=== PATIENT | female | born 1990 | race Caucasian/White ===

== ENCOUNTER → 2022-08-29 11:46 | Outpatient (CLI) | payer SELFPAY ==
--- NOTE | ~2022-08-29 | US_ITS ---
EXAMINATION: US OB transvaginal DATE: 08/29/2022 12:13 INDICATION: Gestational dating. TECHNIQUE: Real-time transvaginal obstetric ultrasound. FINDINGS: No prior studies for comparison. The uterus measures 7.8 x 5.3 x 6.6 cm. There is an intrauterine gestational sac, with pole juan luis ntified. The crown rump length measures 0.42 cm, which correlates with a estimated gestational age o f 6 weeks 1 day. heart tones are identified measuring 121 bpm. There is a small subchorionic hemorrhage measuring 12 x 6 x 8 mm. There is a corpus luteal cyst of the right ovary measuring 3.7 cm . The left ovary is unremarkable. IMPRESSION: 1. SL IUP with an EGA of 6 weeks, 1 days (EDC by current ultrasound of 04/23/2023). 2: Small subchorionic hemorrhage. 3: Corpus luteal cyst of the right ovary measuring 3.7 cm. Reviewed, dictated and finalized at location A. 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 SL IUP with an EGA of 6 weeks, 1 days (EDC by current ultrasound of ). 2: Small subchorionic hemorrhage. 3: Corpus luteal cyst of the right ovary measuring 3.7 cm.
== END ==
PROVIDERS: PCP Family Medicine; Visit Provider Nurse Practitioner Family
DX: O36.8911 Maternal care for other specified fetal problems, first trimester, fetus 1 (principal); Z3A.01 Less than 8 weeks gestation of pregnancy; N83.11 Corpus luteum cyst of right ovary
CPT/HCPCS: 76817

== ENCOUNTER → 2022-10-13 10:51 | Outpatient (CLI) | payer SELFPAY ==
--- NOTE | ~2022-10-13 | US_ITS ---
EXAMINATION: US OB <= 14 weeks fetus DATE: 10/13/2022 11:21 INDICATION: Encounter for supervision of other normal second trimester TECHNIQUE: Real-time pelvic transabdominal and transvaginal ultrasound was performed. COMPARISON: 08/29/2022 FINDINGS: The uterus measures 16.9 x 6.6 x 11.8 cm. There is an intrauterine gestational sac. There is a 3.3 x 1.2 x 1.4 cm hypoechoic area adjacent to the cranial aspect of the gestational sac. A yolk sac is identified. heart motion is identified measuring 153 beats per minute (bpm) by M-mode D oppler. The crown rump length measures 7.3 cm, which correlates with an estimated gestational a ge of 13 weeks and 3 day(s) (+/-) 8 day(s). The right ovary measures 5.9 x 4.5 x 7.0 cm and contains a 4.6 cm cyst. The left ovary measures 3.3 x 2.0 x 3.3 cm. There is normal vascular flow in the ovaries. There is no free fluid in the pelvis. IMPRESSION: 1. Live intrauterine with an estimated gestational age of 13 weeks and 3 day(s) (+/-) 8 day (s) and an estimated delivery date of 04/17/2023. 2. Moderate-sized subchorionic hematoma. Reviewed, dictated and finalized at location B. [employer] ASSISTANTS TEACHER IMPRESSION: 1. Live intrauterine with an estimated gestational age of 13 weeks an d 3 day(s) (+/-) 8 day(s) and an estimated delivery date of 04/17/2023. 2. Moderate-sized subchorionic hematoma.
== END ==
PROVIDERS: PCP Family Medicine; Visit Provider Nurse Practitioner Family
DX: Z34.81 Encounter for supervision of other normal pregnancy, first trimester (principal); Z3A.13 13 weeks gestation of pregnancy
CPT/HCPCS: 76801

== ENCOUNTER → 2022-12-01 13:48 | Outpatient (CLI) | payer SELFPAY ==
--- NOTE | ~2022-12-01 | US_ITS ---
EXAMINATION: US OB /maternal detail DATE: 12/01/2022 14:34 INDICATION: Second trimester anatomic survey TECHNIQUE: Real-time ultrasound of the pelvis was performed. COMPARISON: None. FINDINGS: There is a single living fetus in vertex presentation. The placenta is anterior and 4.3 cm from the i nternal cervical os. The cervical length is 3.9 cm. heart rate is 138 beats per minute (bpm). cardiac activity and movement are noted. The amniotic fluid index is subjectively normal. The following anatomy was identified as normal: 4 chamber heart 3 vessel cord cord insertion kidneys urinary bladder stomach spine diaphragm ventricles cisterna magna cerebellum The following biometric data were obtained: Biparietal diameter (BPD): 4.7 cm; head circumference (HC): 17.3 cm; abdominal circumference (AC): 14 .3 cm; femur length (FL): 2.9 cm. These measurements are concordant. Estimated weight is 293 g +/- 44 g, which correlates with the 39th percentile when 04/23/2023 is used as estimated date of delivery. As single measurements, these parameters are each equal to the following estimated gestational ages w ith ranges of +/- 2 standard deviations: BPD: 20 weeks 1 days ( 18 weeks 3 days - 22 weeks 0 days). HC: 19 weeks 6 days ( 18 weeks 3 days - 21 weeks 2 days). AC: 19 weeks 5 days ( 17 weeks 4 days - 21 weeks 5 days). FL: 19 weeks 1 days ( 17 weeks 2 days - 20 weeks 6 days). estimated gestational age based solely on measurements from this exam is 19 weeks 5 days +/- 1 weeks 3 days. IMPRESSION: 1. Single living fetus in vertex presentation. 2. Estimated weight is 293 g +/- 44 g, which correlates with the 39th percentile when 04/23/2023 is used as estimated date of delivery. Reviewed, dictated and finalized at location [facility] IMPRESSION: 1. Single living fetus in vertex presentation. 2. Estimated weight is 293 g +/- 44 g, which correlates with the 39th per centile when 04/23/2023 is used as estimated date of delivery.
== END ==
PROVIDERS: PCP Nurse Practitioner Family; Visit Provider Nurse Practitioner Family
DX: Z34.82 Encounter for supervision of other normal pregnancy, second trimester (principal)
CPT/HCPCS: 76805

== ENCOUNTER 2023-01-10 13:57 | Observation (INO) | payer OTHER, SELFPAY ==
--- NOTE | ~2023-01-10 | US_ITS ---
EXAMINATION: US OB limited w BPP DATE: 01/10/2023 15:40 CDT INDICATION: Status post fall. Biophysical profile. TECHNIQUE: Real-time transabdominal obstetric ultrasound. FINDINGS: Comparison to 12/01/2022 There is a single living fetus in vertex presentation. The placenta is anterior without placenta pre via. cardiac activity and movement is noted with a heart rate of 153 beats per minute. Biophysical profile: breathin of 2 movement: 2 of 2 tone: 2 of 2 Amniotic flud pocket: 2 of 2 Total score: 8 of 8 IMPRESSION: 1. Single living intrauterine in vertex presentation. 2: Total biophysical profile score of 8/8. Reviewed, dictated and finalized at location B.
--- NOTE | 2023-01-10 14:21 | LDADM ---
This patient, Tomasa Estrada, was admitted to OB Post 115 on 01/10/23 at 13:57. Plans for labor, pain management and were discussed with patient. Patient/family oriented to hospital policies and general routines including ID bracelet, bed and alarms, visiting hours, pain management, procedures, bathroom and other care routines, personal items, smoking policy, room service/diet and guest tray routines, infant security routines, and visiting hours. Patient/Family are encouraged to report perceived risks to care and to ask questions if they do not understand what they are told or what they should do. See OBIX for further documentation.
[2023-01-10 14:22] VITALS: BP 140/72; PULSE 93
[2023-01-10 14:31] VITALS: BP 120/90; PULSE 94
[2023-01-10 14:36] VITALS: BMI 42.5
[2023-01-10 14:46] VITALS: BP 124/62; PULSE 90
[2023-01-10 15:01] VITALS: BP 119/72; PULSE 86
--- NOTE | 2023-01-10 15:49 | PC.NURSE ---
Patient presented to OB unit post fall on stomach. Patient was then placed on monitor and tracing determined to be category I. Abdomen is soft to palpation and has no complaints of bleeding but rates intermittent cramps of 3/10. MD paged at [phone] and received call back at [phone]. Reviewed maternal status as well as FHR category I tracing. Orders received for BPP, Ultrasound with placenta check. Per MD, If within normal limits then patient is to be discharged
--- NOTE | 2023-01-10 15:59 | PC.NURSE ---
BPP was 8/8, placenta check unremarkable. Discharge instructions reviewed with patient. Patient to return to unit if leaking of any fluid or cramping increases. Patient verbalizes understanding and has no questions at this time.
--- NOTE | 2023-01-12 09:18 | PM.OBTRLD ---
OB - Triage/Final Diagnosis Visit Information Reason for evaluation: other (trauma) Comments/Additional reasons for admission: I have assessed the risk for this patient, Tomasa Bennett CedilloEstrada, and determined that she would benefit from observation care.
== END 2023-01-10 16:15 | disposition home or self-care (01) ==
PROVIDERS: Admitting Provider Obstetrics & Gynecology; PCP Family Medicine; Visit Provider Obstetrics & Gynecology
DX: Z04.3 Encounter for examination and observation following other accident (principal); Z3A.00 Weeks of gestation of pregnancy not specified
CPT/HCPCS: 76815; 76819; G0378; G0379

== ENCOUNTER 2023-04-07 11:19 | Outpatient (CLI) | payer OTHER, SELFPAY ==
[2023-04-07 11:37] LABS: Hematocrit 34.8 % (37.0-47.0); Mean Corpuscular HGB Conc 31.6 g/dl (32-36); Mean Corpuscular Hemoglobin 27.3 pg (26-34); Mean Corpuscular Volume 86.4 fl (80-100); Mean Platelet Volume 11.5 fl (7.4-10.4); Platelet Count Result 236 k/mm3 (150-375); Red Blood Count 4.03 M/mm3 (4.2-5.4); Red Cell Distribution Width 14.5 % (11.5-14.5); White Blood Count 11.9 K/mm3 (4.5-10.0)
[2023-04-09 05:38] LABS: Rapid Plasma Reagin Non-Reactive (NonReactive)
== END 2023-04-07 11:20 | disposition home or self-care (01) ==
LOC: ANHLAB 11:22
PROVIDERS: PCP Family Medicine; Visit Provider Obstetrics & Gynecology
DX: Z01.812 Encounter for preprocedural laboratory examination (principal)
CPT/HCPCS: 36415; 85027; 86592; 86850; 86900; 86901

== ENCOUNTER 2023-04-09 04:36 | Inpatient (IN) | payer OTHER, SELFPAY ==
--- NOTE | 2023-04-06 10:56 | PM.IMHP ---
H&P: HPI History of Present Illness Date/Time: 04/06/23 10:56 Chief Complaint: Oligohydramnios at term Narrative: this is a 32-year-old 2 para 1 with previous section at 38 weeks gestation with decreased amniotic fluid mildly elevated blood pressure. She does not opt for attempted vaginal after . Risks and benefits of repeat reviewed in full [facility] Family History Family History Other Unknown family medical history Social History Social History Substance use: never Spiritual care concerns: No Meds Home Medications and Allergies Home Medications Medication Instructions Recorded Confirmed Type vit#24-iron amino acid 1 tablet PO DAILY 03/26/23 03/26/23 History chelat-folic acid 30 mg-975 mcg tablet Allergies Allergy/AdvReac Type Severity Reaction Status Date / Time No Known Allergies Allergy Verified 03/26/23 12:44 Exam Const: General: cooperative, healthy appearing and comfortable Nutritional Appearance: average body habitus Orientation/consciousness: oriented to person, oriented to place and oriented to time HENMT: Head: normal to inspection Resp: Effort & Inspection: normal respiratory effort Cardio: Rate: regular rate Rhythm: regular rhythm Heart sounds: S1 normal heart sound present and S2 normal heart sound present GI: Inspection: normal to inspection ( gravid soft uterus) Assessment and Plan Assessment and plan (1) Term : Code(s): Z34.90 - Encounter for supervision of normal , unspecified, unspecified trimester Status: Acute (2) Oligohydramnios: Code(s): O41.00X0 - Oligohydramnios, unspecified trimester, not applicable or unspecified Status: Acute (3) Previous section: Code(s): Z98.891 - History of uterine scar from previous surgery Status: Acute Plan repeat low-transverse section
[2023-04-09] VITALS (51 sets, daily range): BP systolic 86–154; BP diastolic 24–105; PULSE 65–125; RESP 11–20; TEMP 36.3–37.4; O2SAT 84–100; BMI 46.8
--- NOTE | 2023-04-09 05:22 | LDADM ---
This patient, Tomasa Estrada, was admitted to Labor/Delivery/Recovery 120 on 04/09/23 at 04:36. Plans for labor, pain management and were discussed with patient. Patient/family oriented to hospital policies and general routines including ID bracelet, bed and alarms, visiting hours, pain management, procedures, bathroom and other care routines, personal items, smoking policy, room service/diet and guest tray routines, infant security routines, and visiting hours. Patient/Family are encouraged to report perceived risks to care and to ask questions if they do not understand what they are told or what they should do. See OBIX for further documentation.
[2023-04-09] MEDS: LACTATED RINGERS 1,000 ML 125 ML IV CONT (05:47)
--- NOTE | 2023-04-09 06:02 | WPDHPUPDATE1 ---
History and Physical Update Update Date/Time: 04/09/23 06:02 History and Physical has been reviewed, including an updated exam of the patient. There are NO changes in the patient's condition. Risks, benefits, and alternatives have been discussed and questions answered. Patient agrees to proceed with procedure.
--- NOTE | 2023-04-09 06:10 | WPDANESEPP ---
Anes - Eval Pre Procedure Procedure: Operation Date: 04/09/23 07:30 Proposed Procedures p Repeat Section - Geovani Bo MD Date/Time: 04/09/23 06:10 Surgeon: Elizabeth Preop Diagnosis: Abdominal pain with contractions Pre Op Diagnosis: C/S Patient Data Age: 32 Gender: F Height: 1.6 m Weight: 120 kg Last Vital Signs Pulse 100 04/09/23 06:01 BP 97/46 L 04/09/23 06:01 O2 Del Method Room Air 04/09/23 05:19 Allergies Allergy/AdvReac Type Severity Reaction Status Date / Time No Known Allergies Allergy Verified 03/26/23 12:44 Home Medications Medication Instructions Recorded Confirmed Type vit#24-iron amino acid 1 tablet PO DAILY 03/26/23 03/26/23 History chelat-folic acid 30 mg-975 mcg tablet hydrocodone 5 mg-acetaminophen 325 1 tablet PO Q4H PRN pain #30 tabs 04/08/23 Rx mg tablet Laboratory Tests 04/09/23 05:29 HIV 1&2 Ab/P24 Ag 4thGn Pending : gestational age HCG: positive Patient hx anesthesia problems: none Family hx anesthesia problems: none Results Review: All pre-operative results and documents have been reviewed as part of the pre-operative evaluation. [facility] Past Medical History Medical History Morbid obesity and not yet delivered Surgical History Surgical History Previous section Family History Family History Other Unknown family medical history Social History Social History Smoking status: Never smoker Substance use: never Lack of Transportation: No Lack of Food: Never True Current Housing: I Have Housing Concerned About Future Housing: No Difficulty Paying Gas/Electric Bills: No Difficulty Paying for Meds: No Currently Unemployed: No Education: Bachelor's Degree Difficulty w/ Childcare or Family Care: No Spiritual care concerns: No Exam Day of Procedure 04/09/23 06:10 Patient weight: morbidly obese Airway: Mallampati scale class II
[2023-04-09] MEDS: ceFAZolin 2 GM/D5W 50 ML 2 GM/50 ML BAG IVPB (06:25)
--- NOTE | 2023-04-09 06:25 | P.PNAN_ITS ---
Anes - Eval Final PreProcedure Day of Procedure 04/09/23 06:25 Patient weight: morbidly obese Heart: regular rate and rhythm Lungs: clear to auscultation Airway: Mallampati scale class II Neurological: alert and oriented Last oral intake: >/= 8 hours ASA classification: III Emergent: no Anesthetic plan: proceed Anesthesia type and monitoring: regional spinal and standard monitoring Results Review: All pre-operative results and documents have been reviewed as part of the pre- operative evaluation. Informed Consent: The patient's anesthetic plan and its attendant risks and benefits were discusse d with the patient/family/POA. Questions were solicited and answers provided to the satisfaction of the patient/family/POA.
[2023-04-09 06:48] LABS: HIV 1/2 Ab P24 Ag Result Negative (Negative)
[2023-04-09] MEDS: KETOROLAC 30 MG/ML VIAL (*BKC) 15 MG IV PUSH (07:10)
--- NOTE | 2023-04-09 07:14 | P.OP_ITS ---
Procedure Note - Detailed Date of Procedure 04/09/23 Pre-op Diagnosis C/S/: : oligohydramnios Post-op Diagnosis Same Procedure Performed repeat low-transverse section Surgeon Geovani Bo MD Anesthesia Spinal Indications see is a 32-year-old multiparous with a little hydramnios at 38 weeks ge station Findings female infant 7lb 15oz Apgars 8 in 9 Description of Procedure patient was prepped draped sterile fashion placed in supine position. Under excellent spinal anesthetic the abdomen was in Pfannenstiel fashion progressive layers to fascia. Fascia incised midline. A freshman underlying muscles sharply dissected. Parietal perineum a by cut clamps and by sharp dissection carried superiorly and inferiorly dome of the bladder. Bladder blade placed in bladder flap formed. Bladder blade returned and a low-transverse incision made. The head delivered in the JAYDEN position. Anterior posterior shoulder delivered spontaneously. Cord clamped x2 and cut passed of the table adnexal cry. Placenta delivered intact manually after drying cord blood. After assuring no membranes remained in the uterus, the uterus was closed with continuous running locking 0 Vicryl from lateral edge to lateral edge. This was followed by 2nd imbricating running locking 0 Vicryl from lateral edge to lateral edge. Hemostasis was assured. Ovaries and tubes appeared within normal limits. Uteru s returned to the abdomen and the uterine incision inspected 1 last time noted be hemostatic. The pelvic gutters were cleaned and the uterine incision inspected 1 last time. Laps removed and accounted for. The fascia closed with continuous running 0 Vicryl from lateral edge to midline. Irrigation subcutaneous layer the skin glue. Blood loss for procedure estimated at 6 and 15cc. All sponge, needle, instrument counts were correct. No immediate complications Estimated Blood Loss 615 Drains No Packing No Pathology None sent Complications No immediate complications Condition Stable Disposition PACU
--- NOTE | 2023-04-09 07:18 | P.DS_ITS ---
DS: Admitting Diagnosis Discharge Date 04/12/2023 Admitting Diagnosis term /oligohydramnios DS: Discharge Diagnosis Discharge Diagnosis (1) Previous section: Code(s): Z98.891 - History of uterine scar from previous surgery Status: Acute (2) Oligohydramnios: Code(s): O41.00X0 - Oligohydramnios, unspecified trimester, not applicable or unspecified Status: Acute (3) Term : Code(s): Z34.90 - Encounter for supervision of normal , unspecified, unspecified trimester Status: Acute DS: Summary Hospital Course Reason for hospitalization: patient was admitted for repeat section at term secondary to oligohydramnios Hospital Course: this is 32-year-old multiparous patient admitted for repeat section on 04/09/2023. She underwent an unremarkable procedure. Hospital course unrem arkable. She remained afebrile. She was up, voiding without difficulty, ambulated, eating regular diet, general Without complaints. Time Spent with Patient Time attestation: Total time spent providing and/or coordinating discharge services: DS: Data Data Completed and Pending Labs on day of discharge: Labs from last 24 hours 04/09/23 05:29 HIV 1&2 Ab/P24 Ag 4thGn Negative Discharge Plan Discharge Attending physician on discharge: Geovani Lyn Discharging Clinician: Geovani Lyn Patient Disposition: Home, Self-Care Activity: may shower, no straining and pelvic rest Diet: heart healthy Wound Care Instructions: follow printed instructions Patient Instructions: Antibiotic Form Stand Alone Forms: General Discharge Information Follow-up/Referrals: Geovani Lyn MD [Physician] - Discharge Medications: New hydrocodone-acetaminophen 5-325 mg tablet 1 tablet PO Q4H PRN (Reason: pain) Qty: 30 0RF No Action Complete 30-975 mg-mcg Tablet 1 tablet PO DAILY Date of admission: 04/09/23 04:36 Primary Care Provider: Catarina,Rojelio Jones Admitting Provider: Geovani Lyn Attending physician on admission: Geovani Lyn Condition: Stable
[2023-04-09] MEDS: OXYTOCIN 30 UNITS/NS 500 ML 30 UNITS/500 ML BAG 125 UNITS IV CONT (08:49)
--- NOTE | 2023-04-09 09:55 | PC.NURSE ---
Patient transferred to post room #285 via stretcher. Support person present. Oriented to unit, room, information board, rooming in, admission packet and security measures. Patient verbalizes understanding.
--- NOTE | 2023-04-09 11:39 | PC.NURSE ---
[id number] Introductions were made, then consulted with patient to assess needs related to . Mother states she just finished pumping both breast for 15 minutes each with one drop of colostrum. Mother states her nipples are flat and she has brought in her own nipple shield. Resources provided for inpatient and outpatient services with the mom/baby guide and name written on the white board. Mother voiced understanding of information and will call if there is a request for education as right now there's company visiting and infant is level 2. Reported to the primary RN.
[2023-04-09] MEDS: KETOROLAC 30 MG/ML VIAL (*BKC) IV PUSH (13:35)
[2023-04-09] MEDS: DEXTROSE 5%/0.45% SOD CHL 1,000 ML 125 ML IV CONT (14:42)
[2023-04-09] MEDS: IBUPROFEN 600 MG TABLET PO (19:57)
[2023-04-09] MEDS: HYDROcodone/acetaminophen (*CRX) 5-325 MG TABLET 1 TAB PO (19:57)
[2023-04-10] MEDS: HYDROcodone/acetaminophen (*CRX) 5-325 MG TABLET 1 TAB PO ×6 (01:48→23:57)
[2023-04-10] MEDS: IBUPROFEN 600 MG TABLET PO ×3 (01:50→16:31)
[2023-04-10 04:40] VITALS: BP 146/92; PULSE 98; RESP 20; TEMP 37.2
[2023-04-10 05:31] LABS: Basophils Absolute Auto 0.1 K/mm3 (0.0-0.1); Basophils Percent Auto 0.5 % (0.2-1.2); Eosinophils Absolute Auto 0.2 K/mm3 (0-0.3); Eosinophils Percent Auto 1.2 % (0-4.4); Hemoglobin 10.4 g/dL (12.0-15.0); Immature Granulocyte Absolute 0.12 K/mm3 (0.00-0.031); Immature Granulocyte Percent A 0.9 % (0-0.5); Lymphocytes Absolute Auto 2.12 K/mm3 (0.9-3.2); Lymphocytes Percent Auto 15.6 % (18.3-44.2); Mean Corpuscular HGB Conc 30.6 g/dl (32-36); Mean Corpuscular Hemoglobin 27.4 pg (26-34); Mean Corpuscular Volume 89.5 fl (80-100); Monocytes Percent Auto 7.4 % (2.6-8.5); Neutrophils Absolute Auto 10.1 K/mm3 (1.3-6.7); Neutrophils Percent Auto 74.4 % (45.5-73.1); Platelet Count Result 225 k/mm3 (150-375); Red Cell Distribution Width 14.7 % (11.5-14.5); White Blood Count 13.6 K/mm3 (4.5-10.0)
--- NOTE | 2023-04-10 05:54 | P.PNOB_ITS ---
OB - PN: Subj Subjective Date/time seen: 04/10/23 05:54 Patient comments: no complaints and pain well controlled baby status: doing well OB - PN: Obj Data Labs 04/10/23 04:42 Labs: Laboratory Results - last 24 hr 04/09/23 04/10/23 05:29 04:42 WBC 13.6 H RBC 3.80 L Hgb 10.4 L Hct 34.0 L MCV 89.5 MCH 27.4 MCHC 30.6 L RDW 14.7 H Plt Count 225 MPV 12.0 H Immature Gran % (Auto) 0.9 H Neut % (Auto) 74.4 H Lymph % (Auto) 15.6 L Calhoun % (Auto) 7.4 Eos % (Auto) 1.2 Baso % (Auto) 0.5 Lymph # (Auto) 2.12 Calhoun # (Auto) 1.0 H Eos # (Auto) 0.2 Baso # (Auto) 0.1 Abs Immat Gran (auto) 0.12 H Absolute Neuts (auto) 10.1 H Absolute Nucleated RBC 0.0 Nucleated RBC % 0.0 HIV 1&2 Ab/P24 Ag 4thGn Negative OB - PN A/P Plan day: 1 Plan: routine care Time Spent With Patient Time: Total time spent is greater than 50% in coordination of care (as documented) at patient's floor/unit and/or counseling patient: Time with patient: less than 15 minutes Exam Const: General: cooperative, healthy appearing and comfortable Nutritional Appearance: average body habitus Orientation/consciousness: oriented to person, oriented to place and oriented to time Resp: Effort & Inspection: normal respiratory effort Cardio: Rate: regular rate Rhythm: regular rhythm Heart sounds: S1 norm al heart sound present and S2 normal heart sound present GI: Inspection: normal to inspection and incision ( wound clean dry and intact)
--- NOTE | 2023-04-10 07:44 | WPDANLDPN2 ---
Anes-Prog Note L&D Date/Time: 04/10/23 07:44 Comfortable throughout: section Neuraxial method: spinal Epidural/Spinal procedure site: clean & non-tender Neuro status: Neuro function grossly intact. Cardiovascular status: normal Respiratory status: normal Airway patency: baseline Mental status: baseline Post-Op hydration status: normal Vital Signs: Last Vital Signs Temp 37.2 C 04/10/23 04:40 Pulse 98 04/10/23 04:40 Resp 20 04/10/23 04:40 BP 146/92 H 04/10/23 04:40 Pulse Ox 97 04/09/23 14:43 O2 Del Method Room Air 04/09/23 09:23 Pain score (VAS): 2/10 I/O: Intake & Output 04/09/23 04/09/23 04/10/23 15:59 23:59 07:59 Intake Total 1000 2150 Output Total 685 1600 300 Balance 315 550 -300 Post-procedural complaints: none Patient feedback: Patient satisfied with anesthetic care.
--- NOTE | 2023-04-10 07:44 | WPDANLDNPN2 ---
Anes-Prog Note L&D-Neuraxial Date/Time: 04/10/23 07:44 Neuraxial medications: intrathecal PF morphine Opiod-related complaints: none Patient feedback: Patient satisfied with post-operative pain management.
[2023-04-10 08:40] VITALS: BP 119/59; PULSE 83; RESP 18; TEMP 37.2; O2SAT 99
[2023-04-10] MEDS: MULTIVIT/MIN/PREN/FOL AC/IRON TABLET 1 TAB PO (08:59)
[2023-04-10] MEDS: DOCUSATE SODIUM 100 MG CAPSULE PO ×2 (08:59→16:31)
[2023-04-10] MEDS: HYDROcodone/acetaminophen (*CRX) 10-325 MG TABLET 1 TAB PO (12:58)
[2023-04-10 19:45] VITALS: BP 142/72; PULSE 87; RESP 20; TEMP 37.3
[2023-04-11] MEDS: ONDANSETRON HCL ODT 4 MG TABLET (00:11)
[2023-04-11] MEDS: IBUPROFEN 600 MG TABLET PO ×4 (05:30→21:26)
[2023-04-11] MEDS: HYDROcodone/acetaminophen (*CRX) 10-325 MG TABLET 1 TAB PO (05:32)
--- NOTE | 2023-04-11 05:55 | PM.OBPNVD ---
OB - PN: Subj Subjective Date/time seen: 04/11/23 05:55 Patient comments: no complaints and pain well controlled baby status: doing well OB - PN: Obj Data Labs 04/10/23 04:42 OB - PN A/P Plan day: 1 Plan: routine care Time Spent With Patient Time: Total time spent is greater than 50% in coordination of care (as documented) at patient's floor/unit and/or counseling patient: Time with patient: less than 15 minutes Exam Const: General: cooperative, healthy appearing and comfortable Nutritional Appearance: average body habitus Orientation/consciousness: oriented to person, oriented to place and oriented to time Resp: Effort & Inspection: normal respiratory effort Cardio: Rate: regular rate Rhythm: regular rhythm Heart sounds: S1 normal heart sound present and S2 normal heart sound present GI: Inspection: normal to inspection and incision ( wound clean dry and intact)
[2023-04-11 08:45] VITALS: BP 136/73; PULSE 72; RESP 18; TEMP 36.8; O2SAT 98
[2023-04-11] MEDS: DOCUSATE SODIUM 100 MG CAPSULE PO ×2 (08:45→16:35)
[2023-04-11] MEDS: MULTIVIT/MIN/PREN/FOL AC/IRON TABLET 1 TAB PO (08:45)
[2023-04-11] MEDS: HYDROcodone/acetaminophen (*CRX) 5-325 MG TABLET 1 TAB PO ×4 (08:45→21:26)
[2023-04-11 21:30] VITALS: BP 131/74; PULSE 85; RESP 18; TEMP 36.7; O2SAT 98
[2023-04-12] MEDS: HYDROcodone/acetaminophen (*CRX) 5-325 MG TABLET 1 TAB PO (01:30)
[2023-04-12] MEDS: IBUPROFEN 600 MG TABLET PO ×2 (04:18→11:36)
[2023-04-12] MEDS: HYDROcodone/acetaminophen (*CRX) 10-325 MG TABLET 1 TAB PO ×2 (04:18→10:00)
--- NOTE | 2023-04-12 05:59 | P.PNOB_ITS ---
OB - PN: Subj Subjective Date/time seen: 04/12/23 05:59 Patient comments: no complaints and pain well controlled baby status: doing well OB - PN: Obj Data Labs 04/10/23 04:42 OB - PN A/P Plan day: 2 Plan: routine care, discharge home and follow up 6 weeks (4) Time Spent With Patient Time: Total time spent is greater than 50% in coordination of care (as documented) at patient's floor/unit and/or counseling patient: Time with patient: less than 15 minutes Exam Const: General: cooperative, healthy appearing and comfortable Orie ntation/consciousness: oriented to person, oriented to place and oriented to time Resp: Effort & Inspection: normal respiratory effort Cardio: Rate: regular rate Rhythm: regular rhythm Heart sounds: S1 normal heart sound present and S2 normal heart sound present GI: Inspection: normal to inspection ( fundus firm below the umbilicus) and incision ( clean dry and intact)
[2023-04-12 08:05] VITALS: BP 128/72; PULSE 82; RESP 18; TEMP 36.9; O2SAT 100
[2023-04-12] MEDS: SIMETHICONE 80 MG TAB.CHEW PO (10:00)
[2023-04-12] MEDS: MULTIVIT/MIN/PREN/FOL AC/IRON TABLET 1 TAB PO (10:00)
[2023-04-12] MEDS: DOCUSATE SODIUM 100 MG CAPSULE PO (11:00)
[2023-04-13 10:47] VITALS: BP 134/77; PULSE 79; RESP 18; TEMP 36.8; O2SAT 100
== END 2023-04-12 12:20 | disposition home or self-care (01) | DRG 788 ==
LOC: ANHLDR 04:45 → ANHOB2 10:00
PROVIDERS: Admitting Provider Obstetrics & Gynecology; PCP Family Medicine; Visit Provider Obstetrics & Gynecology
PROC: 10D00Z1 Extraction of Products of Conception, Low, Open Approach (ICD-10-PCS; CPT 59514; principal; 2023-04-09 07:30)
DX: O41.03X0 Oligohydramnios, third trimester, not applicable or unspecified (principal); Z37.0 Single live birth; Z3A.37 37 weeks gestation of pregnancy; O34.211 Maternal care for low transverse scar from previous cesarean delivery
CPT/HCPCS: 36415; 85025; 86703; A9270; G0432; J0690; J1885; J2274; J2371; J2405; J2590; J7120

== ENCOUNTER 2025-06-30 12:52 | Outpatient (CLI) | payer OTHER, SELFPAY ==
--- NOTE | ~2025-06-30 | US_ITS ---
EXAMINATION: US pelvic complete w TV, 06/30/2025 13:02 CDT HISTORY: Irregular menstrual periods Comparison: None Technique: Hamilton-scale and color Doppler images were obtained. Findings: Uterus: Uterus anteverted 8.2 x 3.9 x 6 cm. . Endometrium 7 mm. Right Ovary:Right ovary 3.6 x 2.5 x 3.7 cm, no adnexal mass, normal flow. Left Ovary: Left ovary 2.2 x 2.5 x 3.9 cm, no adnexal mass, normal flow Free Fluid: None Impression: No etiology to explain the patient's symptoms Reviewed, dictated and finalized at location P. Impression: No etiology to explain the patient's symptoms
== END 2025-06-30 12:53 | disposition home or self-care (01) ==
PROVIDERS: PCP Nurse Practitioner Family; Visit Provider Nurse Practitioner Family
DX: N92.6 Irregular menstruation, unspecified (principal)
CPT/HCPCS: 76830; 76856